=== PATIENT | male | born 1960 | race Caucasian/White ===

== ENCOUNTER → 2025-04-28 16:26 | Outpatient (CLI) | payer OTHER, MEDICARE, SELFPAY ==
[2025-04-28 19:30] LABS: Influenza A - CEPHEID Flu A NEGATIVE (NEGATIVE); Influenza B - CEPHEID Flu B NEGATIVE (NEGATIVE)
[2025-04-28 19:42] LABS: COVID-19 CEPHEID 4-PLEX PCR Negative (Negative)
== END ==
PROVIDERS: PCP Family Medicine; Visit Provider Physician Assistant
DX: R05.1 Acute cough (principal)
CPT/HCPCS: 87637

== ENCOUNTER → 2025-04-28 16:29 | Outpatient (CLI) | payer OTHER, SELFPAY ==
--- NOTE | 2025-04-28 16:34 | DI.RAD.S_ITS ---
PROCEDURE: XR CHEST 2V INDICATIONS: severe wheezing b/l, x 1 week TECHNIQUE: 2 views of the chest were acquired. COMPARISON: None. FINDINGS: Surgical changes and devices: None. Lungs and pleura: Airway thickening. No focal consolidation. No pleural effusions or pneumothorax. Mediastinum: Mediastinal contours are normal. Heart size is normal. Bones and chest wall: No suspicious bony abnormalities. Soft tissues appear unremarkable. IMPRESSION: Mild perihilar airway thickening without focal consolidation. Findings may represent bronchitis either infectious or inflammatory in etiology. Dictated by: Richard Ahmadi M.D. on 04/28/2025 at 17:27 Approved by: Richard Ahmadi M.D. on 04/28/2025 at 17:30
== END ==
PROVIDERS: PCP Family Medicine; Referring Provider Physician Assistant; Visit Provider Physician Assistant
DX: J06.9 Acute upper respiratory infection, unspecified (principal)
CPT/HCPCS: 71046; 87637